=== PATIENT | male | born 1990 | race Caucasian/White ===

== ENCOUNTER 2024-04-27 20:49 | Emergency (ER) | payer OTHER ==
[~2024-04-27] VITALS: Ht 172.7 cm; Wt 106.0 kg
[2024-04-27 20:59] VITALS: BP 136/98; PULSE 67; RESP 18; TEMP 98.6; O2SAT 100
[2024-04-28] MEDS: KETOROLAC 15MG/ML VIAL IM ONE (00:15)
[2024-04-28] MEDS: CYCLOBENZAPRINE 10MG TABLET PO ONE (00:15)
[2024-04-28] MEDS ORDERED: NAPR-681 MT (02:33)
[2024-04-28] MEDS ORDERED: CYCL10TA21 MT (02:33)
== END 2024-04-28 03:18 | disposition home or self-care (01) ==
LOC: ER 20:49
DX: M79.10 Myalgia, unspecified site (principal); M54.50 Low back pain, unspecified; M25.551 Pain in right hip; I10 Essential (primary) hypertension
CPT/HCPCS: 99283; 73502; 96372; J1885